=== PATIENT | male | born 1975 | race Caucasian/White ===

== ENCOUNTER 2019-10-07 15:36 | Emergency (ER) | payer BC ==
[2019-10-07 15:54] VITALS: BP 152/86
--- NOTE | 2019-10-07 15:56 | UC ---
General HPI - HPI Summary HPI Summary: Patient is a 43yo male presenting with cough x2 days that has made sleeping difficult. Cough is nonproductive. Notes SOB and wheezing, worse with exertion. Denies URI symptoms. Denies fever and chills. Denies n/v. Notes mild myalgias. States he is not concerned for strep throat or the flu, stating he is "pretty sure it is just a cold." Notes h/o "mild asthma." Also notes h/o bronchitis that he "used to get a lot when he smoked." No longer a smoker. States he has a nebulizer and rescue inhaler at home but has not felt the need to use them. - History of Current Complaint Chief Complaint: UCRespiratory Stated Complaint: COUGH,FATIGUE,BODY ACHES Time Seen by Provider: 10/07/19 15:45 Hx Obtained From: Patient Onset/Duration: Gradual Onset Pain Intensity: 0 - Allergy/Home Medications Allergies/Adverse Reactions: Allergies Allergy/AdvReac Type Severity Reaction Status Date / Time lisinopril Allergy Coughing Verified 10/07/19 15:54 Home Medications: Home Medications Lisdexamfetamine (NF) [Vyvanse (NF)] 60 mg PO DAILY 10/07/19 [History Confirmed 10/07/19] Metaxalone TAB* [Skelaxin TAB*] 800 mg PO QID PRN 10/07/19 [History Confirmed ] Pantoprazole TAB * [Protonix TAB*] 40 mg PO DAILY 10/07/19 [History Confirmed ] Valsartan TAB* [Diovan TAB*] 40 mg PO DAILY 10/07/19 [History Confirmed 10/07/19 ] amLODIPine TAB* [Norvasc 5 mg TAB*] 10 mg PO DAILY 10/07/19 [History Confirmed 10/07/19] traMADol TAB* [Ultram*] 50 mg PO Q6HR PRN 10/07/19 [History Confirmed 10/07/19] PMH/Surg Hx/FS Hx/Imm Hx Respiratory History: Asthma - "mild" - Surgical History Surgical History: Yes Surgery Procedure, Year, and Place: Cholecystectomy, ~2003 - Family History Known Family History: Positive: Non-Contributory - Social History Alcohol Use: Occasionally Substance Use Type: None Smoking Status (MU): Former Smoker Length of Time of Smoking/Using Tobacco: 1 1/2 PPD x 20 Years When Did the Patient Quit Smoking/Using Tobacco: 2010 Review of Systems All Other Systems Reviewed And Are Negative: Yes Constitutional: Positive: Negative. Negative: Fever, Chills, Fatigue ENT: Negative: Sore Throat, Ear Ache, Nasal Discharge, Sinus Congestion Respiratory: Positive: Shortness Of Breath, Cough - nonproductive, Other - wheezing worse at night Cardiovascular: Positive: Negative. Negative: Chest Pain Gastrointestinal: Positive: Negative Musculoskeletal: Positive: Myalgia Physical Exam Triage Information Reviewed: Yes Appearance: Well-Appearing, No Pain Distress, Well-Nourished Vital Signs: Initial Vital Signs Temp 99.9 F 10/07/19 15:46 Pulse 86 10/07/19 15:46 Resp 16 10/07/19 15:46 BP 152/86 10/07/19 15:46 Pulse Ox 98 10/07/19 15:46 Vital Signs Reviewed: Yes Eyes: Positive: Conjunctiva Clear ENT: Positive: Hearing grossly normal, Pharynx normal, TMs normal, Uvula midline. Negative: Nasal congestion, Nasal drainage, Sinus tenderness Neck exam: Normal Neck: Positive: Supple, Nontender, No Lymphadenopathy Respiratory: Positive: No respiratory distress, No accessory muscle use, Wheezing - L sided expiratory wheezing. Negative: Crackles, Rhonchi, Stridor Cardiovascular Exam: Normal Cardiovascular: Positive: RRR Neurological: Positive: Alert Psychological: Positive: Normal Response To Family Skin Exam: Normal Course/Dx - Course Course Of Treatment: Patient declined rapid flu test. Patient stated mildly SOB at present with L sided wheezes auscultated. Patient declined neb treatment here, stating he "has a machine at home." I discussed viral bronchitis with patient. I prescribed tessalon perles and instructed to do breathing treatment when he gets home and use inhaler as needed for SOB and wheezing. Instructed to go to ED with any new or worsening symptoms. Patient voiced understanding and agreed with treatment plan. Patient in no respiratory distress and stable upon departure. - Diagnoses Provider Diagnosis: Acute bronchitis with bronchospasm Discharge ED - Sign-Out/Discharge Documenting (check all that apply): Patient Departure All imaging exams completed and their final reports reviewed: No Studies - Discharge Plan Condition: Stable Disposition: HOME Prescriptions: Benzonatate CAP* [Tessalon 100 MG CAP*] 100 mg PO BID PRN #14 cap PRN Reason: Cough Patient Education Materials: Acute Bronchitis (ED) Forms: *Work Release Additional Instructions: You may take the tessalon perles as prescribed to help relieve coughing. It is suggested that you do a breathing treatment when you get home. You may use your inhaler as needed for shortness of breath and wheezing. Follow up with your PCP if symptoms do not resolve within 7 days. Go to the emergency room with any new or worsening symptoms. - Billing Disposition and Condition Condition: STABLE Disposition: Home
== END 2019-10-07 16:15 | disposition home or self-care (01) ==
LOC: EDBD → UCCORT 15:36
DX: J20.9 Acute bronchitis, unspecified (principal); J45.909 Unspecified asthma, uncomplicated; Z88.8 Allergy status to other drugs, medicaments and biological substances; Z87.891 Personal history of nicotine dependence
CPT/HCPCS: 99202; G0463